=== PATIENT | male | born 1955 | race Caucasian/White ===

== ENCOUNTER 2019-11-21 | Emergency (ER) | payer MEDICARE ==
[2019-11-21] MEDS ORDERED: ALLOPURINOL100 MG PO (02:44)
[2019-11-21] MEDS ORDERED: METOPROLOL50 M1 PO (02:45)
[2019-11-21] MEDS ORDERED: DOCUSATE CAL240 MG PO (02:46)
[2019-11-21] MEDS ORDERED: TRICOR145 MG PO (02:46)
[2019-11-21] MEDS ORDERED: ASPIRIN81 MG PO (02:47)
[2019-11-21] MEDS ORDERED: MEDDOSEPAK PO (03:36)
[2019-11-21] MEDS ORDERED: ULTRAM50 M1 PO (03:36)
== END 2019-11-21 04:03 | disposition home or self-care (01) ==
DX: M70.22 Olecranon bursitis, left elbow (principal); N18.6 End stage renal disease; Z99.2 Dependence on renal dialysis

== ENCOUNTER 2020-01-04 | Emergency (ER) | payer MEDICARE ==
[~2020-01-04] MED LIST: ALLOPURINOL100 MG PO; ASPIRIN81 MG PO; DOCUSATE CAL240 MG PO; MEDDOSEPAK PO; METOPROLOL50 M1 PO; TRICOR145 MG PO; ULTRAM50 M1 PO
[2020-01-04 18:17] LABS: HEMATOCRIT 38.2 % (39.0-50.0); HEMOGLOBIN 12.3 g/dl (14.0-18.0); IMMATURE GRANULOCYTES 0.5 % (0.0-5.0); MEAN CELL VOLUME 99.7 fL CALC (80.0-100.0); MEAN CORPUSCULAR HGB 32.1 pG CALC (26.0-32.0); MEAN CORPUSCULAR HGB CONC 32.2 g/dL CAL (32.0-36.0); NEUT# 6.29 thou/uL (1.82-7.42); RED BLOOD COUNT 3.83 mill/uL (4.70-6.10); RED CELL DISTRI WIDTH 14.6 % (11.5-15.5)
[2020-01-04 18:36] LABS: ACT PARTIAL THROMBO TIME 30.7 SECONDS (20.0-32.5); INTERNATIONAL NORMALIZED RATIO 1.2 RATIO (0.7-1.3); PROTHROMBIN TIME 12.7 SECONDS (9.0-12.5)
== END 2020-01-04 19:00 | disposition home or self-care (01) ==
DX: L76.22 Postprocedural hemorrhage of skin and subcutaneous tissue following other procedure (principal); Y83.8 Other surgical procedures as the cause of abnormal reaction of the patient, or of later complication, without mention of misadventure at the time of the procedure

== ENCOUNTER 2022-09-25 23:50 | Emergency (ER) | payer MEDICARE ==
[~2022-09-25] VITALS: Ht 172.7 cm; Wt 104.0 kg
[2022-09-26] VITALS (15 sets, daily range): BP systolic 80–166; BP diastolic 42–79
[2022-09-26 00:43] LABS: HEMATOCRIT 34.6 % (39.0-50.0); HEMOGLOBIN 11.4 g/dl (14.0-18.0); IMMATURE GRANULOCYTES 0.1 % (0.0-5.0); MEAN CORPUSCULAR HGB 30.2 pG CALC (26.0-32.0); MEAN CORPUSCULAR HGB CONC 32.9 g/dL CAL (32.0-36.0); NEUT# 6.47 thou/uL (1.82-7.42); RED BLOOD COUNT 3.77 mill/uL (4.70-6.10); RED CELL DISTRI WIDTH 15.4 % (11.5-15.5)
[2022-09-26 01:14] LABS: MEAN CELL VOLUME 91.8 fL CALC (80.0-100.0)
[2022-09-26 01:25] LABS: ALBUMIN 4.7 g/dL (3.2-5.0); BILIRUBIN, TOTAL 0.3 mg/dL (0.0-1.4); TOTAL PROTEIN 7.4 g/dL (6.3-8.2)
[2022-09-26 01:28] LABS: CREATININE 8.4 mg/dL (0.7-1.3)
[2022-09-26] MEDS ORDERED: PROMETHAZINE HY25 M1 PO (02:05)
[2022-09-27] MEDS ORDERED: CALCITRIOL0.25 MC1 PO (16:58)
[2022-09-27] MEDS ORDERED: RENA-VIT1 PO (16:59)
[2022-09-27] MEDS ORDERED: VENOFER20 MG/ML IV (17:00)
[2022-09-27] MEDS ORDERED: [UNRECOGNIZED DRUG - CODE] IJ (17:01)
[2022-09-27] MEDS ORDERED: HYDROCORTISONE20 MG PO (17:02)
[2022-09-27] MEDS ORDERED: TESTOST CYP100 MG/ML IM (17:04)
[2022-09-27] MEDS ORDERED: FLUDROCORTISON0.1 MG PO (17:04)
[2022-09-27] MEDS ORDERED: VELPHORO500 MG PO (17:05)
[2022-09-27] MEDS ORDERED: VITAMIN B-121000 MCG PO (17:06)
[2022-09-27] MEDS ORDERED: PROTONIX40 M2 PO (17:06)
[2022-09-27] MEDS ORDERED: VITAMIN D1000 UNIT PO (17:06)
[2022-09-27] MEDS ORDERED: AMLODIPINE BESY10 MG PO (17:07)
[2022-09-27] MEDS ORDERED: LISINOPRIL10 MG PO (17:08)
[2022-09-27] MEDS ORDERED: CARVEDILOL25 MG PO (17:08)
== END 2022-09-26 | disposition home or self-care (01) ==
LOC: ED 23:50
PROVIDERS: Family Medicine
DX: U07.1 COVID-19 (principal); R50.9 Fever, unspecified; R53.1 Weakness; R52 Pain, unspecified; R05.9 Cough, unspecified; R51.9 Headache, unspecified; N18.6 End stage renal disease; Z99.2 Dependence on renal dialysis; Z86.16 Personal history of COVID-19; Z90.5 Acquired absence of kidney

== ENCOUNTER 2022-09-27 15:37 | Inpatient (IN) | payer MEDICARE ==
[2022-09-27] VITALS (17 sets, daily range): BP systolic 125–179; BP diastolic 55–86
[~2022-09-27] VITALS: Ht 172.7 cm; Wt 105.9 kg
[~2022-09-27 15:37] MED LIST changes: +PROMETHAZINE HY25 M1 PO
[2022-09-27 16:30] LABS: HEMATOCRIT 34.2 % (39.0-50.0); HEMOGLOBIN 11.1 g/dl (14.0-18.0); IMMATURE GRANULOCYTES 0.1 % (0.0-5.0); MEAN CELL VOLUME 93.7 fL CALC (80.0-100.0); MEAN CORPUSCULAR HGB 30.4 pG CALC (26.0-32.0); MEAN CORPUSCULAR HGB CONC 32.5 g/dL CAL (32.0-36.0); NEUT# 9.92 thou/uL (1.82-7.42); RED BLOOD COUNT 3.65 mill/uL (4.70-6.10); RED CELL DISTRI WIDTH 15.7 % (11.5-15.5)
[2022-09-27 16:40] LABS: ALBUMIN 4.4 g/dL (3.2-5.0); BILIRUBIN, TOTAL 0.3 mg/dL (0.0-1.4); POTASSIUM 3.7 mmol/l (3.5-5.1)
[2022-09-27 16:42] LABS: CREATININE 7.3 mg/dL (0.7-1.3)
[2022-09-27] MEDS ORDERED: CALCITRIOL0.25 MC1 PO (16:58)
[2022-09-27] MEDS ORDERED: RENA-VIT1 PO (16:59)
[2022-09-27] MEDS ORDERED: VENOFER20 MG/ML IV (17:00)
[2022-09-27] MEDS ORDERED: [UNRECOGNIZED DRUG - CODE] IJ (17:01)
[2022-09-27] MEDS ORDERED: HYDROCORTISONE20 MG PO (17:02)
[2022-09-27] MEDS ORDERED: FLUDROCORTISON0.1 MG PO (17:04)
[2022-09-27] MEDS ORDERED: TESTOST CYP100 MG/ML IM (17:04)
[2022-09-27] MEDS ORDERED: VELPHORO500 MG PO (17:05)
[2022-09-27] MEDS ORDERED: PROTONIX40 M2 PO (17:06)
[2022-09-27] MEDS ORDERED: VITAMIN D1000 UNIT PO (17:06)
[2022-09-27] MEDS ORDERED: VITAMIN B-121000 MCG PO (17:06)
[2022-09-27] MEDS ORDERED: AMLODIPINE BESY10 MG PO (17:07)
[2022-09-27] MEDS ORDERED: LISINOPRIL10 MG PO (17:08)
[2022-09-27] MEDS ORDERED: CARVEDILOL25 MG PO (17:08)
--- NOTE | 2022-09-27 19:55 | NUR ---
RECEIVED REPORT FROM ED NURSE, PATIENT TRASNPORTED VIA BED, PATIENT HAS ONGOING IV BOLUS OF NORMAL SALINE AND ONGOING VANCOMYCIN, PATIENT STILL HAVING HEADACHE AWITING EFFECTIVEMENT OF LORTAB GIVEN, PATIENT G 20 LAC PATEN FLUSHES WELL, HAD DUAL LUMEN DIALYSIS CATHETER ON RT ANTERIOR CHEST, DRESSING CDI, PATIENT STATED WAS DIALYZE TODAY AND GETS HOME DIALYSIS MON/WED/FRI DONE BY , ACTIVE BOWEL SOUND LBM 12/16, CALL LIGHT IN REACH.
--- NOTE | 2022-09-27 20:11 | NUR ---
REPORT GIVEN TO RN ON MEDR FLOOR. PT IN NAD, A&oX4, VSS. PT AND UPDATED ON PLAN OF CARE.
--- NOTE | 2022-09-27 21:24 | NUR ---
SPOKE TO OLE CAHPIN ABOUT ORDER TO DO BLOOD CULTURE USING DIALYSIS PORT AND OK TO DO IT TOMORROW, [facility] DIALYSIS NURSE AWARE AND WILL COLLECT TOMORROW.
[2022-09-28] VITALS (7 sets, daily range): BP systolic 121–172; BP diastolic 51–74
--- NOTE | 2022-09-28 00:44 | NUR ---
PATIENT RESTING IN BED, EYES CLOSED, BREATHING EVEN UNLABORED. CALL LIGHT IN REACH.
--- NOTE | 2022-09-28 02:25 | NUR ---
PATIENT C/O NAUSEA PER MORTGAGE LOAN OFFICER, ASSESSED PATIENT PATIENT APPEARS TO BE SLEEPING WITH EYES CLOSED AT THIS TIME, MNO DISCOMFORTS NOTED.
--- NOTE | 2022-09-28 03:36 | NUR ---
RECEIVED A PHONECALL FROM ED, PATIENT HEART RATE @ [address], PATIENT WAS TOSSING IN BED, AND TURNED TO TYHE OTHER SIDE, COMFORTABLE, NO DISCOMFORTS NOTED AT THIS TIME, WILL CONTINUE TO MONITOR.
--- NOTE | 2022-09-28 04:50 | NUR ---
PIEDAD WATTS IN ROOM TO OBTAIN BLOODCULTURE FROM DIALYSIS CATHETER.
--- NOTE | 2022-09-28 05:10 | NUR ---
BLOOD CULTURES COLLECTED FROM RIGHT SUBCLAVIAN TUNNELED CVC, ASEPTIC TECHNIQUE MAINTAINED. HEPLOCKED WITH HEPARIN 1000 UNITS/ML, 2.4ML PER LUMEN AND TEGO CONNECTORS AND SWAB CAPS APPLIED. EXPOSED LUMENS WRAPPED IN 4X4 GAUZE AND SECURED WITH TAPE. DRESSING IS C/D/I AND DATED TO BE CHANGED 10/04/22. PT DECLINES OFFER TO CHANGE DRESSING AT THIS TIME. DRESSING IS CLEAR OVER CATHETER INSERTION SITE, NO GROSS S/S OF INFECTION NOTED.
[2022-09-28 05:47] LABS: HEMATOCRIT 34.6 % (39.0-50.0); HEMOGLOBIN 11.2 g/dl (14.0-18.0); IMMATURE GRANULOCYTES 0.3 % (0.0-5.0); MEAN CORPUSCULAR HGB 30.4 pG CALC (26.0-32.0); MEAN CORPUSCULAR HGB CONC 32.4 g/dL CAL (32.0-36.0); NEUT# 5.45 thou/uL (1.82-7.42); RED BLOOD COUNT 3.68 mill/uL (4.70-6.10); RED CELL DISTRI WIDTH 15.7 % (11.5-15.5)
[2022-09-28 06:10] LABS: ALBUMIN 3.8 g/dL (3.2-5.0); BILIRUBIN, TOTAL 0.3 mg/dL (0.0-1.4); MAGNESIUM 1.9 mg/dL (1.6-2.3); POTASSIUM 4.3 mmol/l (3.5-5.1); TOTAL PROTEIN 6.4 g/dL (6.3-8.2)
[2022-09-28 06:18] LABS: CREATININE 9.1 mg/dL (0.7-1.3)
--- NOTE | 2022-09-28 06:21 | NUR ---
RECEIVED PATIENT CRITICAL CREATININE RESULT 9.1 FROM LAB EF. WILL NOTIFY BLEACH PLANT OPERATOR.
--- NOTE | 2022-09-28 08:00 | NUR ---
PT RESTING COMFORTABLY. PT HAS A TEMP OF 101.0 TYLENOL GIVEN. NO OTHER NEEDS AT THIS TIME.
--- NOTE | 2022-09-28 12:16 | NUR ---
PT RESTING COMFORTABLY, VITAL SIGNS STABLE. IN ROOM. NO NEEDS AT THIS TIME.
--- NOTE | 2022-09-28 16:18 | NUR ---
PT HAS IV VANCO INFUSING. WENT HOME. VITAL SIGNS STABLE. NO FURTHER NEEDS AT THIS TIME.
--- NOTE | 2022-09-28 20:14 | NUR ---
PT NOTED LAYING ON LEFT SIDE IN BED. PT IS A/OX3. PT DENIES ANY PAIN OR DISCOMFORT AT THIS TIME. PT ASSESSMENT COMPLETED AND IV SITE IN LAC APPEARS HEALTHY ON SALINE. CALL LIGHT WITHIN REACH AND SAFETY PRECAUTIONS IN PLACE.
[2022-09-29] VITALS: BP 147/58
--- NOTE | 2022-09-29 00:36 | NUR ---
PT IN BED LAYING O LEFT SIDE, SLEEPING. NO S/S OF DISTRESS OR DISCOMFORT. NO FEVER PRESENT. CALL LIGHT WITHIN REACH AND SAFETY PRECAUTIONS IN PLACE.
[2022-09-29 03:46] VITALS: BP 156/70
[2022-09-29 04:00] VITALS: BP 156/70
--- NOTE | 2022-09-29 04:30 | NUR ---
PT PT LAYING ON LEFT SIDE SLEEPING. NO S/S OF DISTRESS OR DISCOMOFRT. NO FEVER PRESENT. SAFETY PRECAUTIONS IN PLACE. BRADY CONTINUE TO MONITOR.
[2022-09-29 04:52] LABS: ALBUMIN 3.5 g/dL (3.2-5.0); BUN 65 mg/dL (8-23); CARBON DIOXIDE 25 mmol/l (22-30); CHLORIDE 95 mmol/l (95-108); POTASSIUM 4.3 mmol/l (3.5-5.1); SODIUM 134 mmol/l (137-146)
[2022-09-29 05:03] LABS: GFR FOR AFR.AMER. 5 ML/MIN (>=60 (CALC)); GFR OTHER RACES 4 ML/MIN (>=60 (CALC))
[2022-09-29 05:04] LABS: CREATININE 11.9 mg/dL (0.7-1.3)
[2022-09-29 06:44] VITALS: BP 156/70
--- NOTE | 2022-09-29 08:00 | NUR ---
GOT REPORT FROM IT SECURITY ANALYST NURSE. PATIENT ASSESSED. AOX4. PATIENT HAS FALL PRECAUTIONS IN PLACE. CALL LIGHT AND BED SIDE TABLE WITH IN REACH. ADVISED TO CALL IF NEEDING ANYTHING.
[2022-09-29 08:33] LABS: HEMATOCRIT 33.7 % (39.0-50.0); HEMOGLOBIN 10.6 g/dl (14.0-18.0); MEAN CELL VOLUME 94.7 fL CALC (80.0-100.0); MEAN CORPUSCULAR HGB 29.8 pG CALC (26.0-32.0); MEAN CORPUSCULAR HGB CONC 31.5 g/dL CAL (32.0-36.0); RED BLOOD COUNT 3.56 mill/uL (4.70-6.10); RED CELL DISTRI WIDTH 15.5 % (11.5-15.5)
[2022-09-29 08:53] LABS: ALBUMIN 3.5 g/dL (3.2-5.0); BILIRUBIN, TOTAL 0.3 mg/dL (0.0-1.4); POTASSIUM 4.3 mmol/l (3.5-5.1); TOTAL PROTEIN 5.9 g/dL (6.3-8.2)
[2022-09-29 09:02] LABS: CREATININE 11.9 mg/dL (0.7-1.3)
--- NOTE | 2022-09-29 09:26 | NUR ---
PT PROCALCITONIN 1.840 PROVIDER INFORMED NURSE JANNETH SMALLS INFORMED.
--- NOTE | 2022-09-29 10:33 | NUR ---
PRELIMINARY BLOOD CULTURE SHOWS GRAM (+) COCCI IN [address]S. RESULTS REPORTED TO DR GREWAL. PATIENT IS RECEIVING VANCOMYCIN - PHARMACY TO DOSE. NO NEW ORDERS. WILL FOLLOW UP WHEN FINAL RESULTS AVAILABLE.
--- NOTE | 2022-09-29 12:00 | NUR ---
PATIENT IS SITTING UP IN BED EATING. NO SXS OF DISTRESS. NO CONCERNS OR QUESTIONS FROM PATIENT AT THIS TIME . ADVISED TO CALL IF NEEDING ANYTHING. PATIENT VERBALIZED UNDERSTANDING.
--- NOTE | 2022-09-29 14:38 | NUR ---
S: NEIL SALEH is a 66 M who presents with BACTEREMIA. He has a history of HTN, gout, ESRD on dialysis, cancer, hyperlipidemia, and anemia. All medications in patient's chart were reviewed. O: VS: BP 156/70, P 87, RR 18,T 97.8 W 105.9kg, HT 68in, Scr= 11.9,CrCl= A Blood culture from 09/26/22 shows enterococcus faecalis sensitive to vancomycin Preliminary blood culture from 09/27/22 shows gram (+) cocci in 3 sets P: Vancomycin ordered for pharmacy to dose. Patient received loading dose of vancomycin 1 gram IV in ED on 09/27/22 Patient received vancomycin 500mg IV on 09/28/22 Vancomycin random on 09/29/22 is 11 mcg/ml Patient received vancomycin 1 gram IV on 09/29/22 Vancomycin random drawn before hemodialysis on 09/30/22 @ 0900 Start Vancomycin 1g IV Friday, Friday, Friday after hemodialysis. Vancomycin goal trough is between 15-20 mcg/ml. Pharmacy will follow and or advise on antibiotics use as needed.
[2022-09-29 18:58] VITALS: BP 154/67
[2022-09-29 19:00] VITALS: BP 154/67
--- NOTE | 2022-09-29 19:15 | NUR ---
PT LAYING BED ON RT SIDE. NO SXS OF DISTRESS OR DISCOMORT. PT ASSESSMENT COMPLATED, NOTED H/D CATHETER DUAL LUMEN ON RT SIDE CHEST. IV SITE IN LAC APPEARS HEALTHY WITH ADEQUATE BLOOD RETURN. PT IS A/OX3. GLASSES IN USE ON PT. PT ENCAOURAGED TO USE CALL LIGHT FOR ANY NEEDS, SAFETY PRECAUTIONS IN PLACE.
--- NOTE | 2022-09-29 23:35 | NUR ---
PT IN BED SLEEPING ON LEFT SIDE. NO S/S OF DISTRESS. SAFETY PRECAUTIONS IN PLACE AND CALL LIGHT WITHIN REACH.
[2022-09-30] VITALS (8 sets, daily range): BP systolic 144–179; BP diastolic 61–88
[2022-09-30 05:40] LABS: ALBUMIN 3.3 g/dL (3.2-5.0); POTASSIUM 4.3 mmol/l (3.5-5.1)
[2022-09-30 06:03] LABS: CREATININE 14.5 mg/dL (0.7-1.3)
--- NOTE | 2022-09-30 06:05 | NUR ---
LAB CALLED WITH CRITICAL. RECIEVED RESULTS FROM [facility]. BUN 80 AND CREATININE 14.5. PHYSICIAN ALREADY AWARE OF LAB TREND. COOK BOX FILLER NURSE YAMILA CARIAS NOTIFIED.
--- NOTE | 2022-09-30 07:15 | NUR ---
PT IS SITTING UP IN BED, PT HAS SPOUSE AT BEDSIDE, PT IS A&OX3, PT HAS NO C/O PAIN, SOB. VS ASSESSED, NAD. PT HAS CALL LIGHT NEAR AND HAS DEMONTSRATED WELL OF USE. PT HAS BEEN WITNESSED AMBULATION AND GAIT IS STEADY. PT NEEDS HAVE BEEN ADDRESSSED. AND WILL CONTINUE TO MONITOR.
--- NOTE | 2022-09-30 07:55 | NUR ---
BOOKED AN INFECTIOUS DISEASE CONSULTATION WITH DR KOENIG [facility]OUGH [facility] AT 0755 HRS.
--- NOTE | 2022-09-30 10:50 | NUR ---
COMPLETED AN INFECTIOUS DISEASE CONSULT WITH DR KOENIG [facility]IA [facility].
--- NOTE | 2022-09-30 11:16 | NUR ---
PT OFF FLOOR AND GOING TO DIALYSIS AT THIS TIME.
--- NOTE | 2022-09-30 11:25 | NUR ---
DIALYSIS TREATMENT INITIATED AT 1125.
--- NOTE | 2022-09-30 15:13 | NUR ---
DIALYSIS TREATMENT COMPLETED AT 1513. SEE HEMODIALYSIS TREATMENT INTERVENTION IN [facility] AND [facility] TREATMENT REPORT FOR DETAILS.
--- NOTE | 2022-09-30 15:15 | NUR ---
REPEAT BLOOD CULTURES COLLECTED FROM RIGHT SUBCLAVIAN TUNNELED CVC, ASEPTIC TECHNIQUE MAINTAINED.
--- NOTE | 2022-09-30 15:25 | NUR ---
PT RETURNED TO ROOM WITH HDRN, PT STATES HE IS SIGNNG AMA, WILL REMOVE IV AND TELE MONITOR. PT AND SPOUSE GATHERING ALL PT BELONGINGS
--- NOTE | 2022-10-02 10:49 | NUR ---
PRELIMINARY BLOOD CULTURE SHOWS GRAM (+) COCCI IN 2/2 VIALS. CALLED PATIENT AND SPOKE TO . PATIENT IS CURRENTLY ADMITTED TO [facility]. WILL FAX FINAL RESULTS TO [facility] WHEN AVAILABLE.
== END 2022-09-30 15:53 | disposition left against medical advice (07) | DRG 314 ==
LOC: ED 15:37 → ED-I 18:10 → ED 18:17 → MS2 18:18
PROVIDERS: Internal Medicine; Internal Medicine Nephrology; Nurse Practitioner; ADMIT Internal Medicine; ATTEND Internal Medicine
PROC: 5A1D70Z Performance of Urinary Filtration, Intermittent, Less than 6 Hours Per Day (ICD-10-PCS; principal; 2022-09-30)
DX: T80.211A Bloodstream infection due to central venous catheter, initial encounter (principal); N18.6 End stage renal disease; R78.81 Bacteremia; I12.0 Hypertensive chronic kidney disease with stage 5 chronic kidney disease or end stage renal disease; E27.40 Unspecified adrenocortical insufficiency; N25.81 Secondary hyperparathyroidism of renal origin; D63.1 Anemia in chronic kidney disease; C78.00 Secondary malignant neoplasm of unspecified lung; C64.9 Malignant neoplasm of unspecified kidney, except renal pelvis; M10.9 Gout, unspecified; E78.5 Hyperlipidemia, unspecified; B95.2 Enterococcus as the cause of diseases classified elsewhere; Y83.8 Other surgical procedures as the cause of abnormal reaction of the patient, or of later complication, without mention of misadventure at the time of the procedure; Z99.2 Dependence on renal dialysis; Z90.5 Acquired absence of kidney
CPT/HCPCS: J1644; J1756; Q5106 EC